=== PATIENT | female | born 1955 | race Two or more races ===

== ENCOUNTER → 2020-09-08 | Outpatient (CLI) | payer OTHER, SELFPAY | END | disposition home or self-care (01) | LOC: LABSPEC 13:20 | PROVIDERS: Visit Provider Obstetrics & Gynecology | DX: Z13.9 Encounter for screening, unspecified (principal) | CPT/HCPCS: 87086; 87088; 87186 ==

== ENCOUNTER 2023-05-15 20:17 | Emergency (ER) | payer OTHER, MEDICARE, SELFPAY ==
[2023-05-15 20:18] VITALS: BP 144/78; PULSE 75; RESP 17; TEMP 36.6; O2SAT 99
[2023-05-15 20:39] VITALS: BMI 32.8
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
== END 2023-05-15 21:22 | disposition home or self-care (01) ==
PROVIDERS: Emergency Provider Emergency Medicine; PCP Internal Medicine; Visit Provider Emergency Medicine
DX: M54.50 Low back pain, unspecified (principal); Y92.410 Unspecified street and highway as the place of occurrence of the external cause; S16.1XXA Strain of muscle, fascia and tendon at neck level, initial encounter; V43.62XA Car passenger injured in collision with other type car in traffic accident, initial encounter; Z95.1 Presence of aortocoronary bypass graft
CPT/HCPCS: 99282